=== PATIENT | male | born 2000 | race Hispanic/Latino ===

== ENCOUNTER 2020-07-29 10:58 | Emergency (ER) | payer MEDICAID, OTHER | END 2020-07-29 13:13 | disposition home or self-care (01) | LOC: EDH 10:58 | DX: S90.32XA Contusion of left foot, initial encounter (principal); J45.909 Unspecified asthma, uncomplicated; X58.XXXA Exposure to other specified factors, initial encounter; Y93.89 Activity, other specified; Y92.89 Other specified places as the place of occurrence of the external cause; Y99.8 Other external cause status | CPT/HCPCS: 73630 ==

== ENCOUNTER 2020-08-31 13:25 | Inpatient (IN) | payer SELFPAY ==
[~2020-08-31] VITALS: Ht 177.8 cm; Wt 167.7 kg
[2020-08-31] MEDS ORDERED: CLINDAMYCIN IVPB 600MG/50ML 50 ML IV ONE (13:51)
[2020-08-31] MEDS ORDERED: 0.9%NACL 1000ML 1,000 ML IV ONE (13:51)
[2020-08-31] MEDS ORDERED: ACETAMINOPHEN 325 MG TAB ONE (13:51)
[2020-08-31 14:23] LABS: BASOPHILS % (AUTO) 0.9 % (0.0-5.0); EOSINOPHILS % (AUTO) 1.2 % (0.0-8.0); LYMPHOCYTES % (AUTO) 31.2 % (21.0-51.0); MEAN CORPUSCULAR HGB CONC 32.8 g/dL (32.0-36.0); MEAN CORPUSCULAR VOLUME 88.5 fL (79-99); MONOCYTES % (AUTO) 8.4 % (3.0-13.0); NEUTROPHILS % (AUTO) 57.9 % (40.0-77.0); PLATELET COUNT (AUTO) 304 K/uL (130-400); WHITE BLOOD COUNT (AUTO) 8.5 K/uL (4.8-10.8)
[2020-08-31 14:38] LABS: CREATININE 1.2 mg/dL (0.5-1.5); POTASSIUM 4.8 mmol/L (3.5-5.1)
[2020-08-31 14:43] LABS: ALBUMIN 4.2 g/dL (3.5-5.0); BILIRUBIN,TOTAL 0.6 mg/dL (0.2-1.0)
[2020-08-31] MEDS ORDERED: VANCOMYCIN 1G/250ML KIT 250 ML IV ONE (15:35)
[2020-08-31] MEDS: ZOSYN 3.375GM+NS 50ML 50 ML IV SCH (17:00)
[2020-08-31 17:08] LABS: CRP QUANTITATIVE 2.1 mg/L (0.00-9.0)
[2020-08-31] MEDS ORDERED: ZOSYN 3.375GM+NS 50ML 50 ML IV ONE (17:19)
[2020-09-01] MEDS: ZOSYN 3.375GM+NS 50ML 50 ML IV SCH ×2 (01:00→08:43)
[2020-09-01] MEDS ORDERED: ZOSYN 3.375GM+NS 50ML 50 ML IV ONE (01:37)
[2020-09-01 02:05] VITALS: BP 160/76
[2020-09-01 04:16] VITALS: BP 126/63
[2020-09-01 06:16] LABS: HEMATOCRIT 45.3 % (42-54); MEAN CORPUSCULAR HEMOGLOBIN 28.5 pg (27.0-33.0); MEAN CORPUSCULAR HGB CONC 32.7 g/dL (32.0-36.0); MEAN CORPUSCULAR VOLUME 87.3 fL (79-99); RED BLOOD CELL COUNT(AUTO) 5.19 MIL/uL (4.50-6.20); RED CELL DISTRIBUTION WIDTH 12.9 % (11.0-15.5); WHITE BLOOD COUNT (AUTO) 6.7 K/uL (4.8-10.8)
[2020-09-01 06:33] LABS: ALBUMIN 3.7 g/dL (3.5-5.0); BILIRUBIN,TOTAL 0.8 mg/dL (0.2-1.0); CREATININE 1.1 mg/dL (0.5-1.5); TOTAL PROTEIN, SERUM 7.3 g/dL (6.0-8.3)
[2020-09-01 08:14] VITALS: BP 155/80
[2020-09-01 13:34] VITALS: BP 165/87
[2020-09-01] MEDS ORDERED: HONEY 1 APPL/ML TUBE TP SCH (14:45)
== END 2020-09-01 15:50 | disposition home or self-care (01) | DRG 605 ==
LOC: EDH 13:25 → EDHIP 13:26 → 3CH 09-01 02:02
PROVIDERS: ADMIT Internal Medicine; ATTEND Internal Medicine
DX: S91.302A Unspecified open wound, left foot, initial encounter (principal); L03.116 Cellulitis of left lower limb; J45.909 Unspecified asthma, uncomplicated; W18.39XA Other fall on same level, initial encounter; Y93.89 Activity, other specified; Y92.89 Other specified places as the place of occurrence of the external cause; Y99.2 Volunteer activity
CPT/HCPCS: 36415; 73620; 73700; 80053; 82550; 83605; 84145; 85025; 85027; 85651; 86140; 87040; 87070; 87076; 87077; 87186; G0378; J2543; J3370; J3490; J7030

== ENCOUNTER → 2020-09-08 | Outpatient (CLI) | payer SELFPAY ==
[~2020-09-08] MED LIST: HONEY 1 APPL/ML TUBE TP ONE; LIDOCAINE HCL 2% JELLY 5 ML TP ONE
== END | disposition home or self-care (01) ==
LOC: WHH 09:45
PROVIDERS: ATTEND Family Medicine
DX: T81.33XA Disruption of traumatic injury wound repair, initial encounter (principal); J44.9 Chronic obstructive pulmonary disease, unspecified; E66.9 Obesity, unspecified; Z68.41 Body mass index [BMI] 40.0-44.9, adult; Y92.89 Other specified places as the place of occurrence of the external cause; Y82.8 Other medical devices associated with adverse incidents
CPT/HCPCS: 11042

== ENCOUNTER → 2020-09-15 | Outpatient (CLI) | payer SELFPAY | END | disposition home or self-care (01) | LOC: WHH 09:45 | PROVIDERS: ATTEND Family Medicine | DX: T81.33XD Disruption of traumatic injury wound repair, subsequent encounter (principal); J44.9 Chronic obstructive pulmonary disease, unspecified; E66.9 Obesity, unspecified; Z68.41 Body mass index [BMI] 40.0-44.9, adult; Y83.8 Other surgical procedures as the cause of abnormal reaction of the patient, or of later complication, without mention of misadventure at the time of the procedure | CPT/HCPCS: 11042 ==

== ENCOUNTER → 2020-10-06 | Outpatient (CLI) | payer SELFPAY ==
[~2020-10-06] MED LIST changes: -HONEY 1 APPL/ML TUBE TP ONE
== END | disposition home or self-care (01) ==
LOC: WHH 09:45
PROVIDERS: ATTEND Family Medicine
DX: S91.302D Unspecified open wound, left foot, subsequent encounter (principal); J44.9 Chronic obstructive pulmonary disease, unspecified; E66.9 Obesity, unspecified; Z68.41 Body mass index [BMI] 40.0-44.9, adult; X58.XXXD Exposure to other specified factors, subsequent encounter
CPT/HCPCS: 99214; A6021

== ENCOUNTER → 2020-10-20 | Outpatient (CLI) | payer SELFPAY | END | disposition home or self-care (01) | LOC: WHH 08:30 | PROVIDERS: ATTEND Family Medicine | DX: S91.302D Unspecified open wound, left foot, subsequent encounter (principal); J44.9 Chronic obstructive pulmonary disease, unspecified; E66.9 Obesity, unspecified; Z68.41 Body mass index [BMI] 40.0-44.9, adult; X58.XXXD Exposure to other specified factors, subsequent encounter | CPT/HCPCS: 11042; A6022 ==

== ENCOUNTER → 2020-11-03 | Outpatient (CLI) | payer SELFPAY | END | disposition home or self-care (01) | LOC: WHH 08:45 | PROVIDERS: ATTEND Family Medicine | DX: S91.302D Unspecified open wound, left foot, subsequent encounter (principal); J44.9 Chronic obstructive pulmonary disease, unspecified; E66.9 Obesity, unspecified; Z68.41 Body mass index [BMI] 40.0-44.9, adult; X58.XXXD Exposure to other specified factors, subsequent encounter | CPT/HCPCS: 11042; A6021; A6197 ==

== ENCOUNTER → 2020-11-24 | Outpatient (CLI) | payer SELFPAY | END | disposition home or self-care (01) | LOC: WHH 08:50 | PROVIDERS: ATTEND Family Medicine | DX: S91.302D Unspecified open wound, left foot, subsequent encounter (principal); J44.9 Chronic obstructive pulmonary disease, unspecified; E66.9 Obesity, unspecified; Z68.41 Body mass index [BMI] 40.0-44.9, adult; X58.XXXD Exposure to other specified factors, subsequent encounter | CPT/HCPCS: 11042; A6021; A6022 ==

== ENCOUNTER → 2020-12-08 | Outpatient (CLI) | payer SELFPAY | END | disposition home or self-care (01) | LOC: WHH 09:30 | PROVIDERS: ATTEND Family Medicine | DX: S91.302D Unspecified open wound, left foot, subsequent encounter (principal); J44.9 Chronic obstructive pulmonary disease, unspecified; E66.9 Obesity, unspecified; Z68.41 Body mass index [BMI] 40.0-44.9, adult; X58.XXXD Exposure to other specified factors, subsequent encounter | CPT/HCPCS: 11042; A6022 ==